=== PATIENT | male | born 1970 | race Caucasian/White ===

== ENCOUNTER 2020-07-18 16:55 | Emergency (ER) | payer SELFPAY ==
[2020-07-18] MEDS ORDERED: diphenhydrAMINE 50 MG/ML VIAL ONE (17:22)
[2020-07-18] MEDS ORDERED: Prochlorperazine 10 MG/2 ML VIAL ONE (17:22)
[2020-07-18] MEDS ORDERED: Sodium Chloride 0.9% 100 ML ONE (17:25)
[2020-07-18 17:33] LABS: #Basophils 0.1 thou/uL (0.0-0.2); #Eosinphils 0.1 thou/uL (0.0-0.7); #Lymphocytes 1.8 thou/uL (1.20-3.40); #Monocytes 0.7 thou/uL (0.11-0.59); #Neutrophils 8.8 thou/uL (1.40-6.50); %Basophils 0.8 % (0.0-1.0); %Eosinophils 0.9 % (0.0-10.0); %Lymphocytes 15.5 % (21.0-51.0); %Monocytes 5.9 % (0.0-10.0); %Neutrophils 76.8 % (42.0-75.0); Hemoglobin 15.9 g/dL (14.0-18.0); Mean Corpuscular HGB CONC 31.6 g/dL (32.0-36.0); Mean Corpuscular Hemoglobin 29.9 pg (27.0-31.0); Mean Corpuscular Volume 94.6 fL (78.0-98.0); Mean Platelet Volume 7.6 fL (7.4-10.4); Platelet Count 283 thou/uL (130-400); RBC Distribution Width 13.7 % (11.5-14.5); Red Blood Cell (RBC) Count 5.33 mill/uL (4.70-6.10); White Blood Cell (WBC) Count 11.5 thou/uL (4.8-10.8)
--- NOTE | 2020-07-18 17:47 | CT ---
CT Brain WO Con History: Headache Comparison: None. Findings: The posterior superior sagittal sinus is enlarged with a filling defect measuring up to 2.1 cm in size with peripheral calcifications. This may have some involvement of the straight sinus. There appears to be remodeling of the inner table of the occipital bone adjacent to the posterior asp ect superior sagittal sinus. Abnormal hypodensity of the left subcortical white matter concerning for infarction which may be suba cute given the overlying pittman matter is intact. No hemorrhage. Moderate left mucosal sinus thickening and fluid. No acute hemorrhage. No midline shift or mass effect. Impression: 1. Filling defect and enlargement of the inferior aspect posterior superior sagittal sinus concerning for thrombosis versus mass. There is some remodeling of the inner table of the occipital bone suggesting a component of chronicity. CT venogram along with MRI brain with and without contrast rachael mmended. 2. Hypodensity of the left frontal subcortical white matter with intact overlying pittman matter. No sig nificant enlargement of the left lateral ventricle to suggest ex vacuo dilatation. This may reflect microangiopathic change and subacute or chronic infarction although vasogenic edema from a mass is a possibility. This too should be interrogated on the brain MRI with and without contrast. Dr. Blandon notified of findings via telephone at 5:42 PM
[2020-07-18 17:49] LABS: ALT (SGPT) 54 U/L (8-55); AST (SGOT) 34 U/L (5-34); Albumin 4.3 g/dL (3.5-5.0); Alkaline Phosphatase 48 U/L (40-110); Anion Gap 17 mmol/L (10-20); BUN (Urea Nitrogen) 18 mg/dL (8.9-20.6); Bilirubin, Total 0.3 mg/dL (0.2-1.2); Calc. Creatinine Clearance 0 mL/min (70-130); Calcium 9.6 mg/dL (7.8-10.44); Carbon Dioxide 21 mmol/L (22-29); Chloride 106 mmol/L (98-107); Estimated GFR-MDRD 52; Globulin 2.6 g/dL (2.4-3.5); Glucose 173 mg/dL (70-105); Potassium 3.7 mmol/L (3.5-5.1); Protein, Total 6.9 g/dL (6.0-8.3); Sodium 140 mmol/L (136-145)
== END 2020-07-18 18:47 | disposition short-term general hospital (02) ==
LOC: NAV ERS 16:55
DX: R51.9 Headache, unspecified (principal); F41.9 Anxiety disorder, unspecified; F32.9 Major depressive disorder, single episode, unspecified; I10 Essential (primary) hypertension; F17.210 Nicotine dependence, cigarettes, uncomplicated; Z79.899 Other long term (current) drug therapy
CPT/HCPCS: 70450; 80053; 85025; 87081; 87430; 96365; 96375; J0780; J1200